=== PATIENT | female | born 1955 | race Caucasian/White ===

== ENCOUNTER 2016-07-30 17:01 | Outpatient (CLI) | payer OTHER ==
[2016-07-30] MEDS ORDERED: IOPAMIDOL-300 50 ML VIAL PO ONE (18:07)
== END 2016-07-30 17:02 | disposition home or self-care (01) ==
DX: N83.201 Unspecified ovarian cyst, right side (principal); K44.9 Diaphragmatic hernia without obstruction or gangrene; K57.30 Diverticulosis of large intestine without perforation or abscess without bleeding; K42.9 Umbilical hernia without obstruction or gangrene
CPT/HCPCS: 74176; Q9967

== ENCOUNTER 2016-08-04 11:14 | Outpatient (CLI) | payer OTHER ==
--- NOTE | 2016-08-05 08:16 | Ultrasound Report ---
PELVIC ULTRASOUND: 08/04/2016 CLINICAL INDICATION: Right ovarian cyst. COMPARISON: 07/30/2016. TECHNIQUE: Transabdominal pelvic ultrasound performed for global evaluation. Transvaginal pelvic ultr asound performed for detailed evaluation. Real-time scanning performed and static images obtained wit h Doppler. FINDINGS: The uterus is surgically absent. The right ovary is enlarged, measuring 5.2 x 4.4 x 4.3 cm , and contains a 4.9 x 4.6 x 3.7 cm cyst with internal debris, likely hemorrhagic. Normal flow is see n in the surrounding ovarian tissue. The left ovary measures 2.6 x 1.8 x 1.6 cm, and appears unremark able. No free fluid is present. IMPRESSION: LIKELY HEMORRHAGIC RIGHT OVARIAN CYST. IF SURGICAL INTERVENTION IS NOT PLANNED, FOLLOWUP ULTRASOUND IN THREE MONTHS IS RECOMMENDED TO EVALUATE FOR RESOLUTION. JOB #: [id number] EXT JOB #:[id number]
== END 2016-08-04 11:15 | disposition home or self-care (01) ==
LOC: DI 11:14
PROVIDERS: ATTEND Registered Nurse
DX: R93.8 Abnormal findings on diagnostic imaging of other specified body structures (principal)
CPT/HCPCS: 76830; 76856

== ENCOUNTER 2016-08-12 09:56 | Outpatient (CLI) | payer OTHER | END 2016-08-12 09:57 | disposition home or self-care (01) | DX: N64.4 Mastodynia (principal) ==

== ENCOUNTER 2016-09-14 15:39 | Outpatient (CLI) | payer OTHER | END 2016-09-14 15:40 | disposition home or self-care (01) | DX: N83.201 Unspecified ovarian cyst, right side (principal) ==

== ENCOUNTER 2016-10-06 10:52 | Day surgery (SDC) | payer OTHER ==
[2016-10-06] MEDS ORDERED: ceFAZolin 2 GM/50 ML 50 ML IV ONE (10:58)
[2016-10-06] MEDS ORDERED: LACTATED RINGERS 1,000 ML IV ONE ×4 (11:32→17:17)
[2016-10-06] MEDS ORDERED: MIDAZOLAM 2 MG/2 ML VIAL IVP ONE (13:15)
[2016-10-06] MEDS ORDERED: NEOSTIGMINE 1 MG/1 ML 10 ML MDV IVP ONE (13:15)
[2016-10-06] MEDS ORDERED: DEXAMETHASONE 4 MG/ML VIAL IVP ONE (13:15)
[2016-10-06] MEDS ORDERED: ONDANSETRON 4 MG/2 ML VIAL IVP ONE (13:15)
[2016-10-06] MEDS ORDERED: PROPOFOL 200 MG/20 ML VIAL IVP ONE (13:15)
[2016-10-06] MEDS ORDERED: fentaNYL 100 MCG/2 ML VIAL IVP ONE (13:15)
[2016-10-06] MEDS ORDERED: LIDOCAINE-MPF 2% 5 ML VIAL IM ONE (13:15)
[2016-10-06] MEDS ORDERED: ROCURONIUM 50 MG/5 ML VIAL IVP ONE (13:15)
[2016-10-06] MEDS ORDERED: SUCCINYLCHOLINE 200 MG/10 ML VIAL IVP ONE (13:15)
[2016-10-06] MEDS ORDERED: GLYCOPYRROLATE 1 MG/5 ML VIAL IVP ONE (13:15)
[2016-10-06] MEDS ORDERED: ONDANSETRON 4 MG/2 ML VIAL ONE (14:47)
[2016-10-06] MEDS ORDERED: MIDAZOLAM 2 MG/2 ML VIAL ONE (15:06)
[2016-10-06] MEDS ORDERED: oxyCOD/ACETAMIN 5 MG/325 MG TABLET PO ONE (15:47)
== END 2016-10-06 10:53 | disposition home or self-care (01) ==
PROC: 0UT54ZZ Resection of Right Fallopian Tube, Percutaneous Endoscopic Approach (ICD-10-PCS; 2016-10-06)
PROC: 0UT04ZZ Resection of Right Ovary, Percutaneous Endoscopic Approach (ICD-10-PCS; principal; 2016-10-06 12:15)
DX: D27.0 Benign neoplasm of right ovary (principal); N73.6 Female pelvic peritoneal adhesions (postinfective); E66.9 Obesity, unspecified; F32.9 Major depressive disorder, single episode, unspecified; N95.2 Postmenopausal atrophic vaginitis; Z90.49 Acquired absence of other specified parts of digestive tract; Z90.710 Acquired absence of both cervix and uterus; Z68.41 Body mass index [BMI] 40.0-44.9, adult
CPT/HCPCS: 58661; A9270; J0690; J7120

== ENCOUNTER 2017-06-02 15:34 | Outpatient (CLI) | payer OTHER ==
--- NOTE | 2017-06-03 13:17 | Ultrasound Report ---
CHEST ULTRASOUND: 06/02/2017 COMPARISON: None. INDICATION: Right shoulder blade. Evaluate for lipoma. TECHNIQUE: Sonographic evaluation of the right posterior thorax over the shoulder blade. FINDINGS: Over the visualized palpable lump, there is a homogeneous hypoechoic mass. It has smooth margins and no internal color Doppler flow. It measures 7.2 x 7.0 x 2.3 cm. IMPRESSION: RIGHT POSTERIOR THORACIC MASS. LIKELY LIPOMA, BUT NONSPECIFIC. JOB #: [id number] EXT JOB #: [id number] [facility]
== END 2017-06-02 15:35 | disposition home or self-care (01) ==
LOC: DI 15:34
PROVIDERS: ATTEND Registered Nurse
DX: R22.2 Localized swelling, mass and lump, trunk (principal)
CPT/HCPCS: 76604

== ENCOUNTER 2018-06-03 10:07 | Outpatient (CLI) | payer SELFPAY ==
--- NOTE | 2018-06-03 20:00 | XRAY Report ---
Reason: LOW BACK PAIN Procedure Date: 06/03/2018 Accession Number: [id number] / [id number] Procedure: XR - Lumbar Spine 2 View CPT Code: FULL RESULT: EXAM: LUMBOSACRAL SPINE RADIOGRAPHY EXAM DATE: 06/03/2018 10:39 AM. CLINICAL HISTORY: LOW BACK PAIN. COMPARISONS: CT scan of the abdomen and pelvis from 07/30/2016. TECHNIQUE: 3 views. FINDINGS: Alignment: There is grade 1 anterolisthesis of L4 on L5 and L5 on S1. Bones: Five oij-cza-ylrsdja lumbar vertebral bodies are present. No acute fracture seen. Vertebral body hemangiomas are noted to be stable at L2 and L5. Disks: Normal. Disk heights are maintained. Facets: Moderate osteoarthritic changes present. Sacroiliac Joints: Unremarkable. Soft Tissues: Normal. The visualized bowel gas pattern is normal. IMPRESSION: Mild to moderate osteoarthritic changes seen without evidence of acute fracture. RADIA
== END 2018-06-03 10:08 | disposition home or self-care (01) ==
LOC: DI 10:07
PROVIDERS: ATTEND Nurse Practitioner Family
DX: M47.9 Spondylosis, unspecified (principal); M43.16 Spondylolisthesis, lumbar region; M43.17 Spondylolisthesis, lumbosacral region
CPT/HCPCS: 72100

== ENCOUNTER 2021-11-09 12:41 | Outpatient (CLI) | payer MEDICARE ==
[2021-11-09 13:54] LABS: ALBUMIN 4.4 g/dL (3.2-5.5); ALBUMIN/GLOBULIN RATIO 1.6 (1.0-2.2); ALKALINE PHOSPHATASE 66 IU/L (42-121); ALT ALANINE AMINOTRANSFERASE 18 IU/L (10-60); AST ASPARTATE AMINOTRANSFERASE 20 IU/L (10-42); BASOPHILS % (AUTO) 0.2 %; BILIRUBIN,TOTAL 0.6 mg/dL (0.2-1.0); BUN - BLOOD UREA NITROGEN 10 mg/dL (6-20); CALCIUM 9.1 mg/dL (8.5-10.3); CARBON DIOXIDE - CO2 27 mmol/L (21-32); CHLORIDE 105 mmol/L (101-111); CHOLESTEROL 216 mg/dL; CREATININE 0.6 mg/dL (0.4-1.0); EOSINOPHILS % (AUTO) 0.3 %; GFR - MDRD 100 (>89); GLUCOSE 95 mg/dL (70-100); HCT - HEMATOCRIT 45.1 % (37.0-47.0); HDL CHOLESTEROL 54 mg/dL; HGB - HEMOGLOBIN 14.7 g/dL (12.0-16.0); LDL CHOLESTEROL,CALCULATED 131 mg/dL; LDL/HDL RATIO 2.4 (<4.4); LYMPHOCYTES # (AUTO) 1.3 10^3/uL (1.5-3.5); LYMPHOCYTES % (AUTO) 20.7 %; MEAN CORPUSCULAR HEMOGLOBIN 29.9 pg (27.0-31.0); MEAN CORPUSCULAR HGB CONC 32.6 g/dL (32.0-36.0); MEAN CORPUSCULAR VOLUME 91.9 fL (81.0-99.0); MONOCYTES # (AUTO) 0.7 10^3/uL (0.0-1.0); MONOCYTES % (AUTO) 10.1 %; NEUTROPHILS # (AUTO) 4.4 10^3/uL (1.5-6.6); NEUTROPHILS % (AUTO) 68.1 %; PLT - PLATELET COUNT 291 10^3/uL (130-450); POTASSIUM 4.5 mmol/L (3.5-5.0); RED BLOOD COUNT 4.91 10^6/uL (4.20-5.40); RED CELL DISTRIBUTION WIDTH 14.6 % (12.0-15.0); SODIUM 141 mmol/L (135-145); TOTAL PROTEIN 7.2 g/dL (6.7-8.2); TRIGLYCERIDES 153 mg/dL; VLDL CHOLESTEROL 31 mg/dL; WHITE BLOOD COUNT 6.4 x10^3/uL (4.8-10.8)
[2021-11-09 13:58] LABS: CRP - C-REACTIVE PROTEIN < 1.0 mg/dL (0-1.0)
[2021-11-09 14:01] LABS: THYROID STIMULATING HORMONE 1.9 uIU/mL (0.34-5.60)
[2021-11-09 14:40] LABS: FREE T3 3.08 pg/mL (2.5-3.9)
[2021-11-10 06:11] LABS: HCV AB <0.1 s/co ratio (0.0-0.9); HIV SCREEN 4TH GENERATION Non Reactive (Non Reactive); RPR Non Reactive (Non Reactive)
== END 2021-11-09 12:42 | disposition home or self-care (01) ==
LOC: LAB 12:41
PROVIDERS: ATTEND Nurse Practitioner Family
DX: R61 Generalized hyperhidrosis (principal); M35.3 Polymyalgia rheumatica; E78.5 Hyperlipidemia, unspecified; Z11.59 Encounter for screening for other viral diseases
CPT/HCPCS: 36415; 80053; 80061; 83721; 84443; 84480; 84481; 85025; 85651; 86140; 86592; 86803; 87086; 87389

== ENCOUNTER 2021-11-09 13:33 | Outpatient (CLI) | payer MEDICARE ==
--- NOTE | 2021-11-10 08:59 | XRAY Report ---
PROCEDURE: Chest 2 View X-Ray INDICATIONS: COUGH TECHNIQUE: 2 view(s) of the chest. COMPARISON: None. FINDINGS: Surgical changes and devices: None. Lungs and pleura: No pleural effusions or pneumothorax. Lungs are clear. Mediastinum: Mediastinal contours are normal. Heart size is normal. Bones and chest wall: No suspicious bony abnormalities. Soft tissues appear unremarkable. IMPRESSION: Chest without acute cardiopulmonary abnormalities. No focal airspace disease. Reviewed by: Josiah Spann MD on 11/10/2021 8:58 AM PDT Approved by: Josiah Spann MD on 11/10/2021 8:58 AM PDT Station ID: [id number]
== END 2021-11-09 13:34 | disposition home or self-care (01) ==
LOC: DI 13:33
PROVIDERS: ATTEND Nurse Practitioner Family
DX: R05.9 Cough, unspecified (principal); R61 Generalized hyperhidrosis; M35.3 Polymyalgia rheumatica; E78.5 Hyperlipidemia, unspecified; Z11.59 Encounter for screening for other viral diseases
CPT/HCPCS: 71046; 80053; 80061; 84443; 84481; 85025; 85651; 86140; 86592; 86803; 87086; G0475; 36415; 83721; 84480; 87389

== ENCOUNTER 2021-11-17 12:01 | Outpatient (CLI) | payer MEDICARE | END 2021-11-17 12:02 | disposition home or self-care (01) | LOC: LAB 12:01 | PROVIDERS: ATTEND Nurse Practitioner Family | DX: M35.3 Polymyalgia rheumatica (principal); Z11.59 Encounter for screening for other viral diseases; E78.5 Hyperlipidemia, unspecified | CPT/HCPCS: 36415; 84439 ==

== ENCOUNTER 2021-12-09 08:42 | Outpatient (CLI) | payer MEDICARE ==
--- NOTE | 2021-12-10 07:57 | Mammography Report ---
BILATERAL DIGITAL SCREENING MAMMOGRAM 3D/2D: 12/09/2021 CLINICAL: Routine screening. Comparison is made to exams dated: 08/12/2016 mammogram and 12/04/2014 mammogram - [facility]. The tissue of both breasts is predominantly fatty. No significant masses, calcifications, or other findings are seen in either breast. There has been no significant interval change. IMPRESSION: NEGATIVE There is no mammographic evidence of malignancy. A 1 year screening mammogram is recommended. This exam was interpreted at Station ID: [id number]. NOTE: For mammograms, a report in lay terms will be sent to the patient. Approximately 15% of breast malignancies will not be visualized mammographically. In the management of a palpable breast mass, a negative mammogram must not discourage biopsy of a clinically suspicious lesion. Electronically Signed By: Jonathan Linares M.D., jr/del:12/09/2021 11:59:12 ACR BI-RADS Category 1: Negative 3341F PARENCHYMAL PATTERN: (F) - The breast(s) demonstrate(s) diffuse fatty replacement. BI-RADS CATEGORY: (1) - 1 RECOMMENDATION: (ANNUAL) - Recommend routine annual screening mammography. [id number] 1 year screening LATERALITY: (B)
== END 2021-12-09 08:43 | disposition home or self-care (01) ==
LOC: DI.S 08:42
PROVIDERS: ATTEND Nurse Practitioner Family
DX: Z12.31 Encounter for screening mammogram for malignant neoplasm of breast (principal)

== ENCOUNTER 2022-03-16 22:46 | Emergency (ER) | payer MEDICARE ==
[2022-03-16] MEDS ORDERED: MORPHINE 2 MG/ML CARPUJECT IVP STA (23:14)
[2022-03-16] MEDS ORDERED: ONDANSETRON 4 MG/2 ML VIAL IVP STA (23:14)
[2022-03-16] MEDS ORDERED: SODIUM CHLORIDE 0.9% 1,000 ML IV STA (23:19)
[2022-03-16 23:36] LABS: BASOPHILS % (AUTO) 0.3 %; EOSINOPHILS % (AUTO) 0.3 %; HCT - HEMATOCRIT 48.4 % (37.0-47.0); HGB - HEMOGLOBIN 16.2 g/dL (12.0-16.0); LYMPHOCYTES # (AUTO) 1.8 10^3/uL (1.5-3.5); LYMPHOCYTES % (AUTO) 15.3 %; MEAN CORPUSCULAR HEMOGLOBIN 29.6 pg (27.0-31.0); MEAN CORPUSCULAR HGB CONC 33.5 g/dL (32.0-36.0); MEAN CORPUSCULAR VOLUME 88.3 fL (81.0-99.0); MEAN PLATELET VOLUME 9.3 fL (7.9-10.8); MONOCYTES # (AUTO) 1.1 10^3/uL (0.0-1.0); MONOCYTES % (AUTO) 8.9 %; NEUTROPHILS # (AUTO) 8.9 10^3/uL (1.5-6.6); NEUTROPHILS % (AUTO) 74.5 %; PLT - PLATELET COUNT 279 10^3/uL (130-450); RED BLOOD COUNT 5.48 10^6/uL (4.20-5.40); RED CELL DISTRIBUTION WIDTH 14.6 % (12.0-15.0); WHITE BLOOD COUNT 11.9 x10^3/uL (4.8-10.8)
[2022-03-17 00:01] LABS: ALBUMIN 4.4 g/dL (3.2-5.5); ALBUMIN/GLOBULIN RATIO 1.6 (1.0-2.2); CREATININE 0.7 mg/dL (0.4-1.0); POTASSIUM 3.9 mmol/L (3.5-5.0); TOTAL PROTEIN 7.2 g/dL (6.7-8.2)
[2022-03-17 01:15] LABS: BILIRUBIN,URINE NEGATIVE (NEGATIVE); GLUCOSE, URINE (UA) NEGATIVE (NEGATIVE); KETONES,URINE (UA) NEGATIVE (NEGATIVE); LEUKOCYTE ESTERASE, URINE NEGATIVE (NEGATIVE); NITRITE,URINE NEGATIVE (NEGATIVE); OCCULT BLOOD,URINE TRACE-INTA (NEGATIVE); PROTEIN,URINE NEGATIVE (NEGATIVE); UROBILINOGEN,URINE 0.2 (NORMAL) E.U./dL (NORMAL)
[2022-03-17 01:18] LABS: CLARITY,URINE CLEAR (CLEAR)
[2022-03-17] MEDS ORDERED: ONDANSETRON 4 MG/2 ML VIAL IVP STA (01:57)
--- NOTE | 2022-03-17 01:58 | CT Report ---
PROCEDURE: Abdomen/Pelvis W INDICATIONS: L sided abd pain CONTRAST: IV CONTRAST: Optiray 320 ml: 100 PO CONTRAST: *NO PO CONTRAST TECHNIQUE: After the administration of intravenous contrast, 5 mm thick sections acquired from the diaphragms to the symphysis. 5 mm thick coronal and sagittal reformats were acquired. For radiation dose reducti on, the following was used: automated exposure control, adjustment of mA and/or kV according to helio ent size. COMPARISON: CT abdomen pelvis . FINDINGS: Image quality: There is metallic streak artifact from patient's right hip prosthesis. Lung bases: There is dependent atelectasis and scarring within the visualized lung bases. A small pl eural-based nodule along the right middle lobe on series 4 image 1 measuring 0.5 cm appears similar t o the prior CT given differences in technique. Heart: Heart is normal in size. There is a small to moderate hiatal hernia. ABDOMEN: Liver: No mass lesion. Gallbladder:Surgically absent. Biliary ducts: No biliary ductal dilatation. Pancreas: Unremarkable. Spleen: Normal in size. Adrenal Glands:There is a stable right adrenal nodule measuring up to 1.4 cm. Kidneys and Ureters: No hydronephrosis. Stomach and Bowel: Stomach and small bowel loops are normal in caliber and wall thickness. The appen qian is normal in appearance. There is colonic diverticulosis without acute diverticulitis. Mild segme ntal wall thickening of the descending and sigmoid colon may reflect a mild colitis. Peritoneum: No abnormal intraperitoneal fluid. No free air. Ventral Wall: No hernia. Abdominal Nodes: No retroperitoneal or mesenteric adenopathy by size criteria. Vessels: Aorta and inferior vena cava are normal in size. PELVIS: Pelvic Organs:The uterus is surgically absent. Bladder: Unremarkable. Pelvic Nodes: No enlarged lymph nodes. Miscellaneous: No inguinal hernias are seen. Bones: There is moderate facet arthropathy in the lower lumbar spine. Minimal anterolisthesis demons trated at L5-S1. Visualized osseous structures demonstrate no suspicious focal lesions. IMPRESSION: 1. Mild segmental wall thickening of the descending and sigmoid colon suggestive of a mild infectious or inflammatory colitis. 2. Colonic diverticulosis without acute diverticulitis. 3. Small to moderate size hiatal hernia. Reviewed by: Robe Pena MD on 03/17/2022 2:04 AM PDT Approved by: Robe Pena MD on 03/17/2022 2:04 AM PDT Station ID: [id number]
[2022-03-17] MEDS ORDERED: KETOROLAC 30 MG/ML VIAL IVP STA (02:16)
[2022-03-17] MEDS ORDERED: PROMETHAZINE INJ 12.5 MG in SODIUM CHLORIDE 0.9% 50 ML IV STA (02:37)
[2022-03-17] MEDS ORDERED: PROMETHAZINE 25 MG/1 ML VIAL ONE (02:57)
[2022-03-17] MEDS ORDERED: ONDANSETRON ODT 4 MG Prepack 2 TL PRN (03:31)
--- NOTE | 2022-03-17 03:33 | ED Physician Documentation ---
PD HPI ABD PAIN - Stated complaint Stated Complaint: ABD PX - Chief complaint Chief Complaint: Abd Pain - History obtained from History obtained from: Patient - Additional information Additional information: Patient is a 66-year-old female presenting for evaluation of left upper quadrant pain that started this evening. She reports that this feels like her diverticulitis. She has associated nausea and vomiting. She reports loose stools earlier today but that has since resolved. Nothing makes the pain better or worse. It is sharp. No fever, chest pain, difficulty breathing.She has had previous abdominal surgeries. Review of Systems Constitutional: denies: Fever Nose: denies: Congestion Throat: denies: Sore throat Cardiac: denies: Chest pain / pressure Respiratory: denies: Dyspnea, Cough GI: reports: Abdominal Pain, Nausea, Vomiting : denies: Dysuria Musculoskeletal: denies: Back pain Neurologic: denies: Headache PD PAST MEDICAL HISTORY - Past Medical History Past Medical History: Yes Cardiovascular: None Respiratory: None Endocrine/Autoimmune: None GI: Diverticulitis, Cholelithiasis : None HEENT: None Psych: Depression, Anxiety Musculoskeletal: Osteoarthritis Derm: None - Past Surgical History Past Surgical History: Yes General: Colonoscopy, 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 - Present Medications Home Medications: Ambulatory Orders Medication Instructions Recorded Confirmed PARoxetine HCl [Paxil] 1 mg ORAL DAILY 10/09/14 10/06/16 Ondansetron Odt [Zofran] 4 mg TL Q6H PRN #10 tablet 03/17/22 - Allergies Allergies/Adverse Reactions: Allergies Allergy/AdvReac Type Severity Reaction Status Date / Time acetaminophen [From Vicodin] AdvReac Nausea Verified 03/16/22 23:05 hydrocodone bitartrate * AdvReac Nausea Verified 03/16/22 23:05 [From Vicodin] - Social History Does the pt smoke?: No Smoking Status: Never smoker Does the pt drink ETOH?: No Does the pt have substance abuse?: No - Immunizations Immunizations are current?: Yes PD ED PE NORMAL - General General: Alert and oriented X 3, No acute distress, Well developed/nourished - HEENT HEENT: Atraumatic, Moist mucous membranes - Neck Neck: Supple, no meningeal sign - Cardiac Cardiac: RRR, No murmur, Strong equal pulses - Respiratory Respiratory: No respiratory distress, Clear bilaterally - Abdomen Abdomen: Normal bowel sounds, Soft, Non distended, Other (Left upper quadrant tenderness to palpation, no rebound, no mass or hernia) - Back Back: No CVA TTP - Derm Derm: Warm and dry - Extremities Extremities: No edema - Neuro Neuro: Normal speech Results - Vitals Vitals: Vital Signs - 24 hr 03/16/22 03/16/22 03/17/22 23:03 23:42 01:05 Temperature 36.1 C L Heart Rate 87 67 80 Respiratory 19 18 18 Rate Blood Pressure 165/93 H 146/71 H 141/73 H O2 Saturation 100 96 92 03/17/22 03/17/22 03:00 03:35 Temperature 36.3 C L 36.4 C L Heart Rate 73 75 Respiratory 16 16 Rate Blood Pressure 120/60 119/65 O2 Saturation 95 95 Oxygen O2 Source Room air - Labs Labs: Laboratory Tests 03/16/22 03/16/22 03/17/22 23:09 23:44 01:00 WBC 11.9 H RBC 5.48 H Hgb 16.2 H Hct 48.4 H MCV 88.3 MCH 29.6 MCHC 33.5 RDW 14.6 Plt Count 279 MPV 9.3 Neut # (Auto) 8.9 H Lymph # (Auto) 1.8 [place] # (Auto) 1.1 H Eos # (Auto) 0.0 Baso # (Auto) 0.0 Absolute Nucleated RBC 0.00 Nucleated RBC % 0.0 Sodium 140 Potassium 3.9 Chloride 105 Carbon Dioxide 26 Anion Gap 9.0 BUN 12 Creatinine 0.7 Estimated GFR (MDRD) 84 L Glucose 114 H Calcium 9.0 Total Bilirubin 1.0 AST 18 ALT 19 Alkaline Phosphatase 61 Total Protein 7.2 Albumin 4.4 Globulin 2.8 Albumin/Globulin Ratio 1.6 Lipase 22 Urine Color YELLOW Urine Clarity CLEAR Urine pH 6.0 Ur Specific [place] 1.015 Urine Protein NEGATIVE Urine Glucose (UA) NEGATIVE Urine Ketones NEGATIVE Urine Occult Blood TRACE-INTA Urine Nitrite NEGATIVE Urine Bilirubin NEGATIVE Urine Urobilinogen 0.2 (NORMAL) Ur Leukocyte Esterase NEGATIVE Ur Microscopic Review NOT INDICATED Urine Culture Comments NOT INDICATED PD MEDICAL DECISION MAKING - ED course Complexity details: reviewed results, re-evaluated patient, d/w patient, d/w family ED course: Patient presenting for evaluation of left-sided abdominal pain with nausea and vomiting starting this evening. Vital signs are stable and labs were overall reassuring. CT scan was obtained showing mild colitis.Patient did require few rounds of medications for her nausea but overall pain was significantly improved and repeat abdominal exam was benign.Given lack of diarrhea, and fever and WBC count, I do not think she needs antibiotics at this time. I did discuss risks and benefits of antibiotics for colitis and she is comfortable with holding off and continue with supportive care. Patient is counseled on concerning symptoms to return for. Departure - Departure Disposition: 01 Home, Self Care Clinical Impression: Left upper quadrant abdominal pain, Colitis Condition: Stable Instructions: ED Abdominal Pain Female Non-Specific Abdominal Pain Prescriptions: Ondansetron Odt [Zofran] 4 mg TL Q6H PRN #10 tablet PRN Reason: Nausea / Vomiting Comments: You were evaluated for abdominal pain along with nausea and vomiting. Your labs were overall reassuring with normal electrolytes.Your CT scan showed mild inflammation of the left side of your colon called colitis. There is no signs of diverticulitis. Colitis will often resolve By just treating your symptoms and without the need for antibiotics which may have side effects. I will send a prescription for nausea medications to [facility] in [place]. Please start with a clear liquid or bland diet tomorrow and advance as tolerated. If you have any worsening symptoms please consider return to the emergency department. Discharge Date/Time: 03/17/22 03:42
[2022-03-17 03:37] VITALS: BP 119/65
== END 2022-03-17 03:42 | disposition home or self-care (01) ==
LOC: ED 22:46
DX: K52.9 Noninfective gastroenteritis and colitis, unspecified (principal)
CPT/HCPCS: 36415; 74177; 80053; 81003; 83690; 85025; 96361; 96365; 96375; 96376; 99282; 99284; J7040; Q9967; 81001; 87086

== ENCOUNTER 2023-10-15 15:11 | Emergency (ER) | payer MEDICARE ==
--- NOTE | 2023-10-15 15:33 | ED Physician Documentation ---
PD HPI Fall - Stated complaint Stated Complaint: GLF/LT RIB PX - Chief complaint Chief Complaint: Trauma Ch/Bk - History obtained from History obtained from: Patient - History of Present Illness Mechanism of injury: Tripped Fall distance: Standing position Where injury occurred: Home (was out in yard and tripped over a pot, landing onto yard furtinture or such with left upper abd/lower chest wall. Pain there rated 10/10. No injury to head nor neck.) Injury(ies) location: Chest, Abdomen. No: Head, Neck, Left Uppper Extremity Pain level max: 10 Pain level now: 10 Associated symptoms: Dyspnea. No: LOC, AMS, Weakness, Paresthesias Worsens with: Movement, Palpation Similar symptoms before: Has not had sx before Review of Systems Constitutional: denies: Fever, Chills Nose: denies: Rhinorrhea / runny nose, Congestion Throat: denies: Sore throat Cardiac: reports: Chest pain / pressure (left anterolateral) Respiratory: denies: Cough GI: reports: Abdominal Pain, Nausea. denies: Vomiting, Diarrhea Neurologic: denies: Focal weakness, Numbness, Altered mental status, Headache, Head injury, LOC PD PAST MEDICAL HISTORY - Past Medical History Cardiovascular: None Respiratory: None Endocrine/Autoimmune: None GI: Diverticulitis, Cholelithiasis : None HEENT: None Psych: Depression, Anxiety Musculoskeletal: Osteoarthritis Derm: None - Past Surgical History Past Surgical History: Yes General: Colonoscopy, Other /QUALITY DIRECTOR: Hysterectomy - Present Medications Home Medications: Ambulatory Orders Medication Instructions Recorded Confirmed PARoxetine HCL [Paxil] 20 mg ORAL DAILY 10/09/14 10/15/23 Acetaminophen [Acetaminophen Extra 500 mg PO QID PRN #50 tablet 10/15/23 Strength] Lidocaine Patch 5% [Lidoderm Patch] 1 patch TOP DAILY PRN #10 patch 10/15/23 Meloxicam [Mobic] 7.5 mg PO BID 10 Days #20 tablet 10/15/23 Omeprazole 20 mg PO DAILY 10/15/23 10/15/23 buPROPion HCL [Bupropion HCl] 100 mg PO DAILY 10/15/23 10/15/23 oxyCODONE [Roxicodone] 5 mg PO Q6H PRN #15 tablet 10/15/23 - Allergies Allergies/Adverse Reactions: Allergies Allergy/AdvReac Type Severity Reaction Status Date / Time acetaminophen [From Vicodin] AdvReac Nausea Verified 10/15/23 15:25 hydrocodone [From Vicodin] AdvReac Nausea Verified 10/15/23 15:25 - Social History Does the pt smoke?: No Smoking Status: Never smoker Does the pt drink ETOH?: No Does the pt have substance abuse?: No - Immunizations Immunizations are current?: Yes PD ED PE NORMAL - Vitals Vital signs reviewed: Yes - General General: Alert and oriented X 3, Well developed/nourished, Other (in significant discomfort with movement and deep breathing. Very tender to palpation left lower ribs and costal margin as well as LUQ. No skin bruises not lacs. ) - HEENT HEENT: Atraumatic - Neck Neck: Supple, no meningeal sign, No adenopathy - Cardiac Cardiac: RRR, No murmur - Respiratory Respiratory: No respiratory distress, Clear bilaterally - Abdomen Abdomen: Soft, Other (very tender LUQ with local guarding. ) - Extremities Extremities: No tenderness to palpate - Neuro Neuro: Alert and oriented X 3, spinner hand 2-12 intact, No motor deficit, No sensory deficit Results - Vitals Vitals: Vital Signs - 24 hr 10/15/23 19:25 Heart Rate 74 Respiratory 18 Rate Blood Pressure 145/73 H O2 Saturation 100 Oxygen O2 Source Room air - Labs Labs: Laboratory Tests 10/15/23 10/15/23 16:35 16:35 WBC 10.9 H RBC 5.14 Hgb 14.9 Hct 45.3 MCV 88.1 MCH 29.0 MCHC 32.9 RDW 14.3 Plt Count 248 MPV 9.1 Neut # (Auto) 8.1 H Lymph # (Auto) 1.5 [place] # (Auto) 1.1 H Eos # (Auto) 0.1 Baso # (Auto) 0.0 Absolute Nucleated RBC 0.00 Nucleated RBC % 0.0 Sodium 141 Potassium 4.2 Chloride 107 Carbon Dioxide 26 Anion Gap 8.0 BUN 14 Creatinine 0.7 Estimated GFR (MDRD) 83 L Glucose 94 Calcium 10.2 Total Bilirubin 0.9 AST 16 ALT 14 Alkaline Phosphatase 81 Total Protein 7.2 Albumin 4.7 Globulin 2.5 Albumin/Globulin Ratio 1.9 Lipase 12 - Rads (name of study) chest/abd/pelvic CT with contrast Relevant Findings:: Prelim report reviewed (no intraabd nor lung injury. no fractures. ), EMP independent interpretation of test PD Medical Decision Making - ED course Complexity details: reviewed results (normal cT without organ nor osseous injuries. ), considered differential (has significant pain in area of lower ribs and also spleen. I feel CT needed to eval for serious injury. ), d/w patient Drug Therapy Requiring Monitoring for Toxicity: IV started for CT and meds. Given Toradol, Dilaudid x 2 IV with oral Tylenol and topical lido patch at lower rib margin left. Reasonable improvement in pain after all doses. Given meds for home prepack due to Tuesday after [address] results to pt. She was relieved no internal injuries nor fractures. ED course: The patient tripped and fell landing on the left anterolateral chest and upper abdomen against some furniture. She has localized pain in that area, hurting for movement, breathing, palpation. No nausea or vomiting. She has such a degree of pain and tenderness at the lower costal margin in the anterior axillary line both of the ribs but also left upper quadrant. I would have concern for internal injury of organs as well as occult rib fractures which would be difficult to detect on plain x-ray in that area. As such shared decision with the patient was to do a CT scan of chest and abdomen to ensure no internal injuries. The CT result came back showing no internal injuries or fractures. She had been given IV medications of Toradol and Dilaudid with improvement though the pain was starting to come back some. We will give a repeat dosing of the pain medicine and given that it Tuesday evening now, they will not be pharmacies open and I did give her a prepack of Percocet. She believes she has had that before and is nauseous with hydrocodone in the past. The patient was advised of the CT findings and basic labs. I will send prescription for further medicine to her preferred pharmacy as well as she will likely be sore over the next several days to week or so. Departure - Departure Disposition: Home, Self Care Clinical Impression: Accidental fall, Chest wall contusion, Continuous LUQ abdominal pain Condition: Stable Record reviewed to determine appropriate education?: Yes Instructions: ED Contusion Chest Wall Follow-Up: Miriam Ramos, [employer] [Primary Care Provider] - Prescriptions: Acetaminophen [Acetaminophen Extra Strength] 500 mg PO QID PRN #50 tablet PRN Reason: Pain Lidocaine Patch 5% [Lidoderm Patch] 1 patch TOP DAILY PRN #10 patch PRN Reason: pain Meloxicam [Mobic] 7.5 mg PO BID 10 Days #20 tablet oxyCODONE [Roxicodone] 5 mg PO Q6H PRN #15 tablet PRN Reason: Pain Comments: Your basic labs and CT scan did not show any obvious internal injuries. In particular no signs of organ injury such as the spleen or lung and no fractures of the ribs. Obviously it will still be sore from injury in the area with the contusion to the cartilage and lower ribs and belly wall. This is likely to continue for several days or so and even up to a week. As such I would suggest going regular with the combination of an anti- inflammatory and Tylenol and then also trying topical lidocaine patch in the area that is most tender. To that then add the oxycodone stronger pain medicine just when needed. I sent prescriptions for these to your preferred pharmacy. Recheck if not steadily improving over the next several days and resolved by a week or so. I am prescribing a short course of narcotic pain medication for you. These are potentially dangerous and addictive medications that should be used carefully. These medications may constipate you. Take an [id number]-xyjcftb stool softener such as docusate twice daily with plenty of water while taking these medications. If you go 24 hours without a bowel movement, take rsch-pci-lksferr MiraLAX, per package instructions. Do not drink or drive while taking these medications. If you received narcotic or sedating medications while in the emergency department do not drive for 24 hours. Store this medication in a safe, secure place and out of reach of children. It is a violation of federal law to give or sell this medication to another person or to use in a manner other than prescribed. The ED will not refill narcotic prescriptions, including prescriptions lost or stolen. You can dispose of unwanted medications at the [facility] office or at several pharmacies such as [facility]. Forms: PCP List Discharge Date/Time: 10/15/23 19:26
[2023-10-15] MEDS: KETOROLAC 30 MG/ML VIAL IVP STA (16:20)
[2023-10-15] MEDS: ONDANSETRON 4 MG/2 ML VIAL IVP STA (16:20)
[2023-10-15] MEDS: HYDROmorphone 1 MG/ML CARPUJECT IVP STA ×2 (16:21→19:08)
[2023-10-15] MEDS: SODIUM CHLORIDE 0.9% 1,000 ML IV STA (16:21)
[2023-10-15 16:44] LABS: BASOPHILS % (AUTO) 0.3 %; EOSINOPHILS # (AUTO) 0.1 10^3/uL (0.0-0.7); EOSINOPHILS % (AUTO) 0.6 %; HCT - HEMATOCRIT 45.3 % (37.0-47.0); HGB - HEMOGLOBIN 14.9 g/dL (12.0-16.0); LYMPHOCYTES # (AUTO) 1.5 10^3/uL (1.5-3.5); LYMPHOCYTES % (AUTO) 14.1 %; MEAN CORPUSCULAR HGB CONC 32.9 g/dL (32.0-36.0); MEAN CORPUSCULAR VOLUME 88.1 fL (81.0-99.0); MEAN PLATELET VOLUME 9.1 fL (7.9-10.8); MONOCYTES # (AUTO) 1.1 10^3/uL (0.0-1.0); MONOCYTES % (AUTO) 10.1 %; NEUTROPHILS # (AUTO) 8.1 10^3/uL (1.5-6.6); NEUTROPHILS % (AUTO) 74.2 %; PLT - PLATELET COUNT 248 10^3/uL (130-450); RED BLOOD COUNT 5.14 10^6/uL (4.20-5.40); RED CELL DISTRIBUTION WIDTH 14.3 % (12.0-15.0); WHITE BLOOD COUNT 10.9 x10^3/uL (4.8-10.8)
[2023-10-15 16:58] LABS: ALBUMIN 4.7 g/dL (3.2-5.5); ALBUMIN/GLOBULIN RATIO 1.9 (1.0-2.2); BILIRUBIN,TOTAL 0.9 mg/dL (0.2-1.0); CALCIUM 10.2 mg/dL (8.5-10.3); CREATININE 0.7 mg/dL (0.6-1.3); POTASSIUM 4.2 mmol/L (3.5-4.5); TOTAL PROTEIN 7.2 g/dL (6.4-8.9)
[2023-10-15] MEDS ORDERED: iohexoL-300 100 ML VIAL ONE (17:08)
[2023-10-15] MEDS: iohexoL-300 100 ML VIAL IVP ONE (17:32)
--- NOTE | 2023-10-15 17:49 | CT Report ---
PROCEDURE: Chest W INDICATIONS: fall with left anterior chest/abd pain CONTRAST: 100ml omni 300 TECHNIQUE: After the administration of intravenous contrast, a CT scan of the chest was performed. Images were recorded and evaluated at appropriate window settings. Reformats: axial MIP of the chest, coronal and sagittal. For radiation dose reduction, the following was used: automated exposure control, adjustme nt of mA and/or kV according to patient size. COMPARISON: None. FINDINGS: Image quality: Diagnostic. Chest wall and lower neck: No thyroid nodule which requires sonographic follow up. No axillary or sup raclavicular adenopathy by size. Lungs and pleura: No consolidation. No pleural effusions. No pneumothorax. No suspicious pulmonary n odules which require follow up. Mediastinum: Heart size is normal. No pericardial effusion. No large vessel abnormality. No mediastin al adenopathy by size criteria. Bones: No aggressive osseous abnormality. A few vertebral body hemangiomas. Moderate osteoarthritic c hanges of the left glenohumeral joint. Upper Abdomen: Hiatal hernia IMPRESSION: No acute findings within the chest. Reviewed by: aDnis Linares MD on 10/15/2023 4:48 PM [facility] Approved by: Danis Linares MD on 10/15/2023 4:48 PM AK[facility] Station ID: [id number]
--- NOTE | 2023-10-15 17:53 | CT Report ---
PROCEDURE: Abdomen/Pelvis W INDICATIONS: fall with left anterolat chest/abd pain CONTRAST: 100ml omni 300 TECHNIQUE: After the administration of intravenous contrast, a CT scan of the abdomen and pelvis was performed. Images were recorded and evaluated at appropriate window settings. Reformats: coronal and sagittal. F or radiation dose reduction, the following was used: automated exposure control, adjustment of mA and /or kV according to patient size. COMPARISON: None. FINDINGS: Image quality: Diagnostic. Lower chest: Hiatal hernia Liver: No solid mass. Gallbladder and biliary tree: Surgically absent. No biliary dilation, accounting for post-cholecystec wes state. Spleen: No splenomegaly. Pancreas: No pancreatic ductal dilation. Adrenals: Unchanged 1.4 cm right adrenal nodule. Kidneys and ureters: No hydronephrosis. No renal cystic lesion which requires follow up. No solid mas s. Stomach, bowel and peritoneum: No bowel distension. No pathologic free fluid. Diverticulosis without evidence of diverticulitis. The appendix is normal. Lymph nodes: No central or retroperitoneal adenopathy. Vessels: No infrarenal aortic aneurysm. PELVIS Reproductive organs: Unremarkable. Bladder: No abnormal wall thickening, accounting for underdistention. Pelvic lymph nodes: No pelvic adenopathy by size criteria. Bones: No aggressive osseous abnormality. 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 Several vertebral body hemangiomas. Other: No significant ventral or inguinal hernia. IMPRESSION: 1.No acute findings within the abdomen or pelvis. 2.Diverticulosis without evidence of acute diverticulitis. 3.Hiatal hernia. 4.Stable right adrenal nodule. Reviewed by: Danis Linares MD on 10/15/2023 4:52 PM AKDT Approved by: Danis Linares MD on 10/15/2023 4:52 PM AKDT Station ID: [id number]
[2023-10-15] MEDS: ACETAMINOPHEN 500 MG TABLET PO STA (19:07)
[2023-10-15] MEDS: oxyCODONE/ACET 5/325 Prepack 4 PO STA (19:07)
[2023-10-15] MEDS: LIDOCAINE PATCH 5% TOP STA (19:08)
[2023-10-15 19:33] VITALS: BP 145/73; O2SAT 100
== END 2023-10-15 19:26 | disposition home or self-care (01) ==
LOC: ED 15:11
DX: S20.213A Contusion of bilateral front wall of thorax, initial encounter (principal); S30.1XXA Contusion of abdominal wall, initial encounter; W01.0XXA Fall on same level from slipping, tripping and stumbling without subsequent striking against object, initial encounter; Y92.007 Garden or yard of unspecified non-institutional (private) residence as the place of occurrence of the external cause
CPT/HCPCS: 36415; 71260; 74177; 80053; 83690; 85025; 96374; 96375; 99284; A9270; J1170; Q9967

== ENCOUNTER 2024-02-15 09:50 | Outpatient (CLI) | payer MEDICARE ==
--- NOTE | 2024-02-17 15:35 | Mammography Report ---
BILATERAL DIGITAL SCREENING MAMMOGRAM 3D/2D: 02/15/2024 CLINICAL: Routine screening. Comparison is made to exams dated: 12/09/2021 mammogram, 08/12/2016 mammogram, and 12/04/2014 mammogram - [facility]. Both breasts are almost entirely fatty (category a/<25% glandular tissue). No significant masses, calcifications, or other findings are seen in either breast. There has been no significant interval change. IMPRESSION: NEGATIVE There is no mammographic evidence of malignancy. A 1 year screening mammogram is recommended. Based on the Tyrer Cuzick model (a risk assessment model) the patient's lifetime risk is 2.9% and her 10 year risk is 1.6%. According to the ACR, ACS, and NCCN guidelines, an annual breast MRI exam bret g with mammogram is recommended if the patient's lifetime risk is 20% or greater. This exam was interpreted at Station ID: [id number]. NOTE: For mammograms, a report in lay terms will be sent to the patient. Approximately 15% of breast malignancies will not be visualized mammographically. In the management of a palpable breast mass, a negative mammogram must not discourage biopsy of a clinically suspicious lesion. Electronically Signed By: Cristy Srivastava M.D., Ph.D. yandel/del:02/16/2024 14:00:12 letter sent: No_Letter ACR BI-RADS Category 1: Negative 3341F PARENCHYMAL PATTERN: (F) - The breast(s) demonstrate(s) diffuse fatty replacement. BI-RADS CATEGORY: (1) - 1 RECOMMENDATION: (ANNUAL) - Recommend routine annual screening mammography. [id number] 1 year screening LATERALITY: (B)
== END 2024-02-15 09:51 | disposition home or self-care (01) ==
LOC: DI 09:50
DX: Z12.31 Encounter for screening mammogram for malignant neoplasm of breast (principal)